=== PATIENT | female | born 2000 | race Caucasian/White ===

== ENCOUNTER 2020-12-14 09:26 | Emergency (ER) | payer BC ==
[~2020-12-14] VITALS: Ht 154.9 cm; Wt 59.4 kg
[2020-12-14] MEDS ORDERED: IV NS 0.9% 1,000 ML BAG IV ONE (10:30)
[2020-12-14] MEDS ORDERED: DEXAMETHASONE SOD PHOSPHATE 10 MG/ML VIAL IV ONE (10:30)
[2020-12-14] MEDS ORDERED: METOCLOPRAMIDE HCL 10 MG/2 ML VIAL IV ONE (10:30)
[2020-12-14] MEDS ORDERED: KETOROLAC TROMETHAMINE INJ 30 MG/ML VIAL IV ONE (10:30)
[2020-12-14] MEDS ORDERED: diphenhydrAMINE HCL 50 MG/ML VIAL IV ONE (10:30)
--- NOTE | 2020-12-14 11:52 | NUR ---
BIBS TO ER BED 6. AAOX4. NOT IN RESP DISTRESS. AMBULTORY. CAME IN FOR HEADACHE, SORE THROAT, FEVER AND CHILLS. PT NOTED WITH RED SWOLLEN TONSILS. PAIN UPON SWALLOWING. MD WAS AT THE BEDSIDE FOR EVAL. ORDERS RECEIVED, NOTED AND CARRIED OUT.
[2020-12-14] MEDS ORDERED: KETOROLAC TROMETHAMINE 15 MG/ML VIAL ONE (11:55)
[2020-12-14] MEDS ORDERED: DEXAMETHASONE SOD PHOSPHATE 10 MG/ML VIAL ONE (11:55)
[2020-12-14] MEDS ORDERED: diphenhydrAMINE HCL 50 MG/ML VIAL ONE (11:55)
[2020-12-14] MEDS ORDERED: METOCLOPRAMIDE HCL 10 MG/2 ML VIAL ONE (11:55)
[2020-12-14] MEDS ORDERED: AZIT1PAC9 PO (12:11)
[2020-12-14] MEDS ORDERED: IBUP-1955 PO (12:11)
--- NOTE | 2020-12-14 13:08 | NUR ---
Patient discharged to home in stable condition. Written and verbal after care instructions given. Patient verbalizes understanding of instruction. Pt ambulatory with a steady gait
[2020-12-14 13:16] VITALS: BP 117/60
== END 2020-12-14 13:16 | disposition home or self-care (01) ==
LOC: ER 09:46
DX: J02.9 Acute pharyngitis, unspecified (principal); G43.909 Migraine, unspecified, not intractable, without status migrainosus; R59.0 Localized enlarged lymph nodes; Z79.899 Other long term (current) drug therapy; Z87.442 Personal history of urinary calculi
CPT/HCPCS: 87070; 87880; 96361; 96374; 96375; 99284; J1100; J1200; J1885; J2765; J7030; 86403-TC